=== PATIENT | male | born 1945 | race Caucasian/White ===

== ENCOUNTER 2018-09-29 14:52 | Emergency (ER) | payer OTHER ==
[~2018-09-29] VITALS: Ht 182.9 cm; Wt 68.0 kg
[~2018-09-29 14:52] MED LIST: ACET-1603; AGG25C PO; ALLO100T; AMIT150T; ATEN-60; CARBAMAZEPINE; CHOL1CAP50; DICL0.1S20 OP; FLUO1TAB3; PREDSUS OP; SIMV-13; TEMA30CA
[2018-09-29 16:02] VITALS: BP 185/83
[2018-09-29] MEDS ORDERED: MORPHINE SULFATE 10 MG/ML INJ 1ML SDV IM ONE (17:00)
[2018-09-29] MEDS ORDERED: PROMETHAZINE HCL 25 MG/ML 1ML IM ONE (17:00)
== END 2018-09-29 17:45 | disposition home or self-care (01) ==
LOC: ER 14:52
DX: M54.16 Radiculopathy, lumbar region (principal); G89.29 Other chronic pain; F17.210 Nicotine dependence, cigarettes, uncomplicated; E78.5 Hyperlipidemia, unspecified; I10 Essential (primary) hypertension; F41.9 Anxiety disorder, unspecified; F32.9 Major depressive disorder, single episode, unspecified; Z86.73 Personal history of transient ischemic attack (TIA), and cerebral infarction without residual deficits; Z79.899 Other long term (current) drug therapy
CPT/HCPCS: 72100; 96372; 99283; J2270; J2550

== ENCOUNTER 2021-05-27 17:51 | Inpatient (IN) | payer MEDICARE, OTHER ==
[~2021-05-27] VITALS: Ht 182.9 cm; Wt 67.4 kg
[~2021-05-27 17:51] MED LIST changes: -AMIT150T; +AMIT150T3; -FLUO1TAB3; +FLUO20TA34
[2021-05-27] MEDS ORDERED: TRAM50TA2 PO (18:31)
[2021-05-27] MEDS ORDERED: SODIUM CHLORIDE 0.9% 1,000 ML IV ONE ×2 (19:00→21:45)
[2021-05-27 19:51] LABS: Eosinophils # (auto) 0.1 10 ^3/uL (0-0.8); Monocytes # (auto) 0.4 10 ^3/uL (0-1.3); Neutrophils # (auto) 3.6 10 ^3/uL (1.6-8.6)
[2021-05-27 19:52] LABS: Basophils # (auto) 0.1 10 ^3/uL (0-0.2); Eosinophils % (auto) 2.3 % (0.0-7.0); Hematocrit 29.9 % (41.0-53.0); Hemoglobin 9.7 g/dL (13.5-17.5); Lymphocytes # (auto) 1.8 10 ^3/uL (0.4-5.4); Lymphocytes % (auto) 29.7 % (10.0-50.0); Mean Corpuscular Hemoglobin 26.4 pg (28.0-32.0); Mean Corpuscular Hgb Conc. 32.4 g/dL (32.0-36.0); Mean Corpuscular Volume 81.4 fL (80.0-100.0); Monocytes % (auto) 6.3 % (0.0-12.0); Neutrophils % (auto) 60.7 % (37.0-80.0); Red Blood Cells 3.67 10^6/uL (4.5-5.90); Red Cell Distribution Width 22.9 % (11.8-14.3)
[2021-05-27 20:06] LABS: Albumin 3.1 g/dL (3.4-5.0); Calcium 8.5 mg/dL (8.5-10.1); Potassium 4.4 mmol/L (3.5-5.1)
[2021-05-27 20:10] LABS: BUN/Creatinine Ratio 31.7; Bilirubin, Total 0.2 mg/dL (0.2-1.0); Total Protein 6.6 g/dL (6.4-8.2)
[2021-05-27] MEDS ORDERED: ONDANSETRON HCL 4 MG/2 ML VIAL IV PRN (22:30)
[2021-05-27] MEDS ORDERED: SODIUM CHLORIDE 0.9% 1,000 ML IV SCH (22:30)
[2021-05-28 01:09] VITALS: BP 133/51
[2021-05-28 05:00] VITALS: BP 137/68
[2021-05-28 06:12] LABS: Eosinophils # (auto) 0.1 10 ^3/uL (0-0.8); Red Blood Cells 3.39 10^6/uL (4.5-5.90); White Blood Cell 5.8 10^3/uL (4.4-10.8)
[2021-05-28 06:15] LABS: Basophils # (auto) 0.1 10 ^3/uL (0-0.2); Eosinophils % (auto) 2.2 % (0.0-7.0); Hematocrit 27.4 % (41.0-53.0); Lymphocytes # (auto) 1.9 10 ^3/uL (0.4-5.4); Lymphocytes % (auto) 33.1 % (10.0-50.0); Mean Corpuscular Hemoglobin 26.6 pg (28.0-32.0); Mean Corpuscular Hgb Conc. 32.9 g/dL (32.0-36.0); Monocytes # (auto) 0.4 10 ^3/uL (0-1.3); Monocytes % (auto) 7.2 % (0.0-12.0); Neutrophils # (auto) 3.3 10 ^3/uL (1.6-8.6); Neutrophils % (auto) 56.5 % (37.0-80.0); Nucleated Red Blood Cells % 0.3 %
[2021-05-28 06:28] LABS: Red Cell Distribution Width 23.2 % (11.8-14.3)
[2021-05-28 06:29] LABS: Albumin 2.8 g/dL (3.4-5.0); Calcium 7.9 mg/dL (8.5-10.1); Potassium 4.5 mmol/L (3.5-5.1)
[2021-05-28 06:32] LABS: BUN/Creatinine Ratio 29.8
[2021-05-28 06:34] LABS: Bilirubin, Total 0.2 mg/dL (0.2-1.0); Total Protein 5.9 g/dL (6.4-8.2)
[2021-05-28 09:00] VITALS: BP 131/53
[2021-05-28] MEDS: PANTOPRAZOLE 40 MG/10 ML VIAL INJ IV SCH (09:50)
[2021-05-28] MEDS ORDERED: D5W 5% 1,000 ML IV SCH (11:00)
[2021-05-28 22:00] VITALS: BP 145/47
[2021-05-29 05:00] VITALS: BP 137/47
[2021-05-29] MEDS: PANCREATIC ENZYMES 4200 UNIT CAP PO SCH ×3 (08:00→18:00)
[2021-05-29] MEDS ORDERED: LIDOCAINE VISCOUS 2% 15ML UD ONE (09:15)
[2021-05-29] MEDS ORDERED: SODIUM CHLORIDE LOCK 10 ML ONE (09:15)
[2021-05-29] MEDS ORDERED: diphenhdrAMINE HCL 50 MG/1 ML VL ONE (09:16)
[2021-05-29] MEDS ORDERED: MIDAZOLAM HCL 5 MG/ML-1ML VIAL ONE (09:16)
[2021-05-29] MEDS ORDERED: fentaNYL CITRATE 100 MCG/2 ML VL ONE (09:16)
[2021-05-29 09:26] VITALS: BP 128/77
[2021-05-29] MEDS: PANTOPRAZOLE 40 MG/10 ML VIAL INJ IV SCH (10:00)
[2021-05-29 10:48] LABS: INR 1.01 (0.9-1.15)
[2021-05-29 10:57] LABS: BUN/Creatinine Ratio 23.1; Calcium 8.6 mg/dL (8.5-10.1)
[2021-05-29] MEDS ORDERED: SODIUM CHLORIDE 0.9% 1,000 ML IV SCH (12:15)
[2021-05-29 16:34] VITALS: BP 129/63
[2021-05-29] MEDS ORDERED: PANCREATIC ENZYMES 4200 UNIT CAP PO SCH (18:00)
[2021-05-29] MEDS: SODIUM BICARBONATE 50ML VIAL 150 ML in D5W 5% 1,000 ML IV SCH (21:55)
[2021-05-29 22:00] VITALS: BP 151/66
[2021-05-30 05:00] VITALS: BP 129/43
[2021-05-30] MEDS: SODIUM BICARBONATE 50ML VIAL 150 ML in D5W 5% 1,000 ML IV SCH (06:00)
[2021-05-30 06:15] LABS: Potassium 4.8 mmol/L (3.5-5.1)
[2021-05-30 06:21] LABS: BUN/Creatinine Ratio 20.4; Calcium 8.6 mg/dL (8.5-10.1)
[2021-05-30] MEDS ORDERED: MIDAZOLAM HCL 5 MG/ML-1ML VIAL ONE (08:19)
[2021-05-30] MEDS ORDERED: LIDOCAINE VISCOUS 2% 15ML UD ONE (08:19)
[2021-05-30] MEDS ORDERED: fentaNYL CITRATE 100 MCG/2 ML VL ONE (08:20)
[2021-05-30] MEDS ORDERED: diphenhdrAMINE HCL 50 MG/1 ML VL ONE (08:20)
[2021-05-30] MEDS ORDERED: SODIUM CHLORIDE LOCK 10 ML ONE (08:20)
== END 2021-05-30 08:28 | disposition left against medical advice (07) | DRG 641 ==
LOC: EDBD 17:51 → ER 18:02 → OVERFLOW 22:24 → WEST WING 23:57
PROVIDERS: ADMIT Nurse Practitioner; ATTEND Internal Medicine
DX: E86.0 Dehydration (principal); N17.9 Acute kidney failure, unspecified; K86.1 Other chronic pancreatitis; D64.9 Anemia, unspecified; R13.10 Dysphagia, unspecified; I10 Essential (primary) hypertension; F41.9 Anxiety disorder, unspecified; F32.A Depression, unspecified; R19.7 Diarrhea, unspecified; Z53.29 Procedure and treatment not carried out because of patient's decision for other reasons; Z20.822 Contact with and (suspected) exposure to COVID-19; E78.5 Hyperlipidemia, unspecified; Z53.20 Procedure and treatment not carried out because of patient's decision for unspecified reasons; Z83.3 Family history of diabetes mellitus; Z85.51 Personal history of malignant neoplasm of bladder; Z86.73 Personal history of transient ischemic attack (TIA), and cerebral infarction without residual deficits; Z98.1 Arthrodesis status
CPT/HCPCS: 36415; 71045; 74176; 76775; 80048; 80053; 82270; 83605; 85025; 85610; 87040; 87426; 92610; 93005; 96360; 96361; C9113; G0378; J2250; J7042

== ENCOUNTER 2021-12-19 18:18 | Inpatient (IN) | payer OTHER, MEDICAID ==
[~2021-12-19] VITALS: Ht 195.6 cm; Wt 66.3 kg
[2021-12-19 19:49] LABS: Basophils # (auto) 0.1 10 ^3/uL (0-0.2); Basophils % (auto) 0.4 % (0.0-2.0); Eosinophils # (auto) 0 10 ^3/uL (0-0.8); Eosinophils % (auto) 0.1 % (0.0-7.0); Hematocrit 42.3 % (41.0-53.0); Hemoglobin 14.1 g/dL (13.5-17.5); Lymphocytes % (auto) 7.1 % (10.0-50.0); Mean Corpuscular Hemoglobin 28.5 pg (28.0-32.0); Mean Corpuscular Hgb Conc. 33.3 g/dL (32.0-36.0); Mean Corpuscular Volume 85.8 fL (80.0-100.0); Monocytes # (auto) 1.2 10 ^3/uL (0-1.3); Monocytes % (auto) 8.4 % (0.0-12.0); Neutrophils # (auto) 11.5 10 ^3/uL (1.6-8.6); Red Blood Cells 4.94 10^6/uL (4.5-5.90); White Blood Cell 13.7 10^3/uL (4.4-10.8)
[2021-12-19 20:13] LABS: Albumin 3.9 g/dL (3.4-5.0); Calcium 8.8 mg/dL (8.5-10.1); Potassium 3.8 mmol/L (3.5-5.1)
[2021-12-19 20:21] LABS: BUN/Creatinine Ratio 24.7; Bilirubin, Total 0.5 mg/dL (0.2-1.0)
[2021-12-19] MEDS ORDERED: SODIUM CHLORIDE 0.9% 1,000 ML IV ONE (20:30)
[2021-12-19] MEDS ORDERED: fentaNYL CITRATE 100 MCG/2 ML VL IV ONE (20:30)
[2021-12-19] MEDS ORDERED: ASPirin 325 MG TAB PO ONE (21:15)
[2021-12-20] MEDS ORDERED: MORPHINE SULFATE INJ 2 MG/ml SYRG IV PRN
[2021-12-20] MEDS ORDERED: NITROGLYCERIN 0.4 MG SL TAB SL PRN
[2021-12-20] MEDS ORDERED: IBUPROFEN 400 MG TAB PO PRN (00:15)
[2021-12-20] MEDS ORDERED: cefTRIAXone 1GM/50ML D5W 50 ML IV ONE (00:15)
[2021-12-20] MEDS: hydrALAZINE HCL 20 MG/ML VL IV PRN ×3 (01:43→15:19)
[2021-12-20] MEDS: SOD CHL 0.45% 1,000 ML IV SCH ×2 (02:59→15:06)
[2021-12-20] MEDS: MORPHINE SULFATE INJ 2 MG/ml SYRG IV PRN ×2 (03:07→14:36)
[2021-12-20] MEDS: ONDANSETRON HCL 4 MG/2 ML VIAL IV PRN ×2 (03:07→15:18)
[2021-12-20] MEDS ORDERED: amLODIPine BESYLATE 5 MG TAB PO ONE (04:30)
[2021-12-20 06:42] LABS: Urine Bacteria NONE SEEN /hpf (None Seen); Urine Blood TRACE /uL (Negative); Urine Specific Gravity 1.017 (1.001-1.035); Urine WBC 2 /hpf (0 - 3)
[2021-12-20 07:00] LABS: Basophils # (auto) 0.1 10 ^3/uL (0-0.2); Basophils % (auto) 0.6 % (0.0-2.0); Eosinophils # (auto) 0 10 ^3/uL (0-0.8); Hematocrit 41.4 % (41.0-53.0); Hemoglobin 13.5 g/dL (13.5-17.5); Lymphocytes # (auto) 0.4 10 ^3/uL (0.4-5.4); Lymphocytes % (auto) 2.8 % (10.0-50.0); Mean Corpuscular Hgb Conc. 32.7 g/dL (32.0-36.0); Mean Corpuscular Volume 85.8 fL (80.0-100.0); Monocytes # (auto) 1.1 10 ^3/uL (0-1.3); Monocytes % (auto) 8.6 % (0.0-12.0); Neutrophils # (auto) 11.5 10 ^3/uL (1.6-8.6); Red Blood Cells 4.82 10^6/uL (4.5-5.90); Red Cell Distribution Width 17.8 % (11.8-14.3); White Blood Cell 13.1 10^3/uL (4.4-10.8)
[2021-12-20 07:08] LABS: Potassium 4.7 mmol/L (3.5-5.1)
[2021-12-20 07:16] LABS: Albumin 3.4 g/dL (3.4-5.0); BUN/Creatinine Ratio 27.8; Bilirubin, Total 0.5 mg/dL (0.2-1.0); Calcium 8.1 mg/dL (8.5-10.1)
[2021-12-20] MEDS: FAMOTIDINE (10MG/ML) 2ML VL IV SCH ×2 (11:03→23:14)
[2021-12-20] MEDS: ASPirin 81 mg TAB PO SCH (11:04)
[2021-12-20] MEDS: amLODIPine BESYLATE 5 MG TAB PO SCH (11:05)
[2021-12-20 11:43] LABS: Alcohol, Urine < 3.0 mg/dL (0-10); Amphetamine Screen, Urine NEGATIVE (NEGATIVE); Barbiturate Scree,Urine NEGATIVE (NEGATIVE); Benzodiazephine Screen, Urine NEGATIVE (NEGATIVE); Cannabinoid Screen, Urine POSITIVE (NEGATIVE); Cocaine Screen, Urine NEGATIVE (NEGATIVE); Opiate Scree,Urine POSITIVE (NEGATIVE); Phencyclidine Screen, Urine NEGATIVE (NEGATIVE)
[2021-12-20] MEDS: ENOXAPARIN SOD 60 MG/0.6 ML SYRINGE SC SCH ×2 (11:53→23:14)
[2021-12-20] MEDS: METOPROLOL SUCCINATE XL 50 MG TAB PO SCH (12:01)
[2021-12-20] MEDS: HYDROmorphone HCL 2 MG/ML VL/or syr IV PRN (17:05)
[2021-12-20] MEDS: cefTRIAXone 1GM/50ML D5W 50 ML IV SCH (23:14)
[2021-12-21] VITALS (7 sets, daily range): BP systolic 93–164; BP diastolic 51–97
[2021-12-21] MEDS: HYDROmorphone HCL 2 MG/ML VL/or syr IV PRN ×4 (00:17→18:20)
[2021-12-21] MEDS: SOD CHL 0.45% 1,000 ML IV SCH (03:10)
[2021-12-21] MEDS: amLODIPine BESYLATE 5 MG TAB PO SCH (09:11)
[2021-12-21] MEDS: ASPirin 81 mg TAB PO SCH (09:11)
[2021-12-21] MEDS: FAMOTIDINE (10MG/ML) 2ML VL IV SCH (09:11)
[2021-12-21] MEDS: ENOXAPARIN SOD 60 MG/0.6 ML SYRINGE SC SCH (09:12)
[2021-12-21] MEDS: METOPROLOL SUCCINATE XL 50 MG TAB PO SCH (09:12)
[2021-12-21] MEDS: SODIUM BICARBONATE 50ML VIAL 50 ML in SOD CHL 0.45% 1,000 ML IV SCH ×2 (09:15→22:43)
[2021-12-21] MEDS: ONDANSETRON HCL 4 MG/2 ML VIAL IV PRN (10:17)
[2021-12-21 10:24] LABS: Basophils # (auto) 0 10 ^3/uL (0-0.2); Basophils % (auto) 0.4 % (0.0-2.0); Eosinophils # (auto) 0 10 ^3/uL (0-0.8); Eosinophils % (auto) 0.1 % (0.0-7.0); Lymphocytes # (auto) 0.3 10 ^3/uL (0.4-5.4); Lymphocytes % (auto) 2.8 % (10.0-50.0); Mean Corpuscular Hemoglobin 28.2 pg (28.0-32.0); Mean Corpuscular Hgb Conc. 32.4 g/dL (32.0-36.0); Mean Corpuscular Volume 87.1 fL (80.0-100.0); Monocytes # (auto) 0.7 10 ^3/uL (0-1.3); Neutrophils # (auto) 11.2 10 ^3/uL (1.6-8.6); Neutrophils % (auto) 90.7 % (37.0-80.0); Nucleated Red Blood Cells % 0.1 %; Red Blood Cells 4.24 10^6/uL (4.5-5.90); Red Cell Distribution Width 17.9 % (11.8-14.3); White Blood Cell 12.3 10^3/uL (4.4-10.8)
[2021-12-21 10:41] LABS: Albumin 3.2 g/dL (3.4-5.0); Calcium 8.3 mg/dL (8.5-10.1); Potassium 4.2 mmol/L (3.5-5.1)
[2021-12-21 10:45] LABS: BUN/Creatinine Ratio 26.2; Bilirubin, Total 1.1 mg/dL (0.2-1.0); Total Protein 5.8 g/dL (6.4-8.2)
[2021-12-21] MEDS: hydrALAZINE HCL 20 MG/ML VL IV PRN (12:51)
[2021-12-21] MEDS: metroNIDAZOLE 500MG/100ML 100 ML IV SCH (19:27)
[2021-12-21] MEDS: cefTRIAXone 1GM/50ML D5W 50 ML IV SCH (22:42)
[2021-12-22] VITALS (55 sets, daily range): BP systolic 72–135; BP diastolic 25–61
[2021-12-22] MEDS: metroNIDAZOLE 500MG/100ML 100 ML IV SCH ×4 (00:18→21:59)
[2021-12-22] MEDS ORDERED: PANTOPRAZOLE 40mg/50ML NS AE 50 ML IV SCH (06:15)
[2021-12-22] MEDS ORDERED: SODIUM CHLORIDE 0.9% 1,000 ML IV ONE (06:15)
[2021-12-22 07:15] LABS: Basophils # (auto) 0 10 ^3/uL (0-0.2); Basophils % (auto) 0.3 % (0.0-2.0); Eosinophils # (auto) 0 10 ^3/uL (0-0.8); Hematocrit 37.2 % (41.0-53.0); Lymphocytes # (auto) 0.2 10 ^3/uL (0.4-5.4); Lymphocytes % (auto) 5.5 % (10.0-50.0); Mean Corpuscular Hemoglobin 28.2 pg (28.0-32.0); Mean Corpuscular Hgb Conc. 32.3 g/dL (32.0-36.0); Mean Corpuscular Volume 87.2 fL (80.0-100.0); Monocytes # (auto) 0.3 10 ^3/uL (0-1.3); Monocytes % (auto) 7.7 % (0.0-12.0); Neutrophils # (auto) 3.7 10 ^3/uL (1.6-8.6); Neutrophils % (auto) 86.5 % (37.0-80.0); Nucleated Red Blood Cells % 0.1 %; Red Blood Cells 4.26 10^6/uL (4.5-5.90); Red Cell Distribution Width 17.5 % (11.8-14.3); White Blood Cell 4.3 10^3/uL (4.4-10.8)
[2021-12-22 09:20] LABS: Potassium 4.1 mmol/L (3.5-5.1)
[2021-12-22 09:21] LABS: Albumin 2.3 g/dL (3.4-5.0); BUN/Creatinine Ratio 34.4; Bilirubin, Total 0.7 mg/dL (0.2-1.0); Calcium 7.4 mg/dL (8.5-10.1)
[2021-12-22] MEDS: ASPirin 81 mg TAB PO SCH (10:00)
[2021-12-22] MEDS: METOPROLOL SUCCINATE XL 50 MG TAB PO SCH (10:00)
[2021-12-22] MEDS: amLODIPine BESYLATE 5 MG TAB PO SCH (10:00)
[2021-12-22] MEDS: ENOXAPARIN SOD 60 MG/0.6 ML SYRINGE SC SCH (11:59)
[2021-12-22] MEDS ORDERED: IPRATROPIUM BROM 0.5 MG/2.5ML INH SOL NEB PRN (18:00)
[2021-12-22] MEDS ORDERED: ALBUTEROL SULF 2.5 MG/0.5ML(0.5%) NEB SOLN NEB ONE (18:00)
[2021-12-22] MEDS: HYDROmorphone HCL 2 MG/ML VL/or syr IV PRN (19:53)
[2021-12-22] MEDS ORDERED: ALBUTEROL SULF 2.5 MG/0.5ML(0.5%) NEB SOLN NEB PRN (20:15)
[2021-12-22] MEDS: cefTRIAXone 1GM/50ML D5W 50 ML IV SCH (21:57)
[2021-12-23] VITALS (89 sets, daily range): BP systolic 84–139; BP diastolic 26–62
[2021-12-23] MEDS: SODIUM BICARBONATE 50ML VIAL 50 ML in SOD CHL 0.45% 1,000 ML IV SCH ×5 (00:10→21:09)
[2021-12-23] MEDS: HYDROmorphone HCL 2 MG/ML VL/or syr IV PRN ×4 (00:14→21:09)
[2021-12-23] MEDS ORDERED: diphenhdrAMINE HCL 50 MG/1 ML VL IV ONE (01:45)
[2021-12-23 05:05] LABS: Albumin 1.8 g/dL (3.4-5.0); Calcium 6.2 mg/dL (8.5-10.1); Potassium 3.8 mmol/L (3.5-5.1)
[2021-12-23 05:07] LABS: BUN/Creatinine Ratio 39.4; Bilirubin, Total 0.6 mg/dL (0.2-1.0); Total Protein 3.8 g/dL (6.4-8.2)
[2021-12-23 05:09] LABS: Basophils # (auto) 0 10 ^3/uL (0-0.2); Eosinophils # (auto) 0 10 ^3/uL (0-0.8); Hematocrit 31.1 % (41.0-53.0); Hemoglobin 10.5 g/dL (13.5-17.5); Lymphocytes # (auto) 0.1 10 ^3/uL (0.4-5.4); Lymphocytes % (auto) 2.1 % (10.0-50.0); Mean Corpuscular Hemoglobin 28.9 pg (28.0-32.0); Mean Corpuscular Hgb Conc. 33.7 g/dL (32.0-36.0); Monocytes # (auto) 0.3 10 ^3/uL (0-1.3); Monocytes % (auto) 5.4 % (0.0-12.0); Neutrophils # (auto) 5.3 10 ^3/uL (1.6-8.6); Neutrophils % (auto) 92.5 % (37.0-80.0); Nucleated Red Blood Cells % 0.1 %; Red Blood Cells 3.62 10^6/uL (4.5-5.90); White Blood Cell 5.7 10^3/uL (4.4-10.8)
[2021-12-23] MEDS ORDERED: ACETAMINOPHEN 325 MG TAB PO PRN (05:30)
[2021-12-23] MEDS ORDERED: HYDROcodone-ACET 5/325MG TAB PO PRN (05:30)
[2021-12-23] MEDS: metroNIDAZOLE 500MG/100ML 100 ML IV SCH ×3 (06:20→21:50)
[2021-12-23] MEDS: NOREPINEPHRINE 8 MG/250ML KIT 250 ML IV SCH ×2 (06:23→12:00)
[2021-12-23] MEDS: PIPERACILLIN-TAZOB 2.25GM 50 ML IV SCH ×3 (07:47→21:50)
[2021-12-23] MEDS ORDERED: FAMOTIDINE (10MG/ML) 2ML VL IV SCH (10:00)
[2021-12-23] MEDS: amLODIPine BESYLATE 5 MG TAB PO SCH (10:00)
[2021-12-23] MEDS: ENOXAPARIN SOD 60 MG/0.6 ML SYRINGE SC SCH (10:00)
[2021-12-23] MEDS: ASPirin 81 mg TAB PO SCH (10:29)
[2021-12-23 10:43] LABS: INR 1.08 (0.9-1.15); Partial Thromboplastin Time 44.3 sec (24.6-33.4)
[2021-12-23] MEDS ORDERED: SODIUM BICARBONATE 8.4 % INJ 50ML VIAL IV ONE (15:00)
[2021-12-23] MEDS: ATORVASTATIN 20 MG TAB PO SCH (22:00)
[2021-12-24] VITALS (81 sets, daily range): BP systolic 68–132; BP diastolic 28–61
[2021-12-24 04:48] LABS: Hematocrit 34.4 % (41.0-53.0); Hemoglobin 11.2 g/dL (13.5-17.5); Mean Corpuscular Hemoglobin 28.8 pg (28.0-32.0); Mean Corpuscular Hgb Conc. 32.7 g/dL (32.0-36.0); Mean Corpuscular Volume 88.1 fL (80.0-100.0); Red Cell Distribution Width 18.4 % (11.8-14.3); White Blood Cell 9.4 10^3/uL (4.4-10.8)
[2021-12-24 04:53] LABS: Basophils % (manual) 0 (0.0-2.0); Blast Cells 0; Eosinophils % (manual) 0 (0-7); Promyelocytes % 0; Reactive Lymphocytes 0
[2021-12-24] MEDS: HYDROmorphone HCL 2 MG/ML VL/or syr IV PRN ×6 (04:53→22:08)
[2021-12-24 05:02] LABS: Albumin 1.9 g/dL (3.4-5.0); BUN/Creatinine Ratio 35.3
[2021-12-24 05:08] LABS: Bilirubin, Total 0.6 mg/dL (0.2-1.0); Total Protein 4.8 g/dL (6.4-8.2)
[2021-12-24] MEDS ORDERED: ENAL2.5T7 PO (05:26)
[2021-12-24] MEDS ORDERED: PREG50CA PO (05:26)
[2021-12-24] MEDS ORDERED: ASPI325T4 PO (05:26)
[2021-12-24] MEDS ORDERED: TRAZ-181 PO (05:26)
[2021-12-24] MEDS ORDERED: HYDR25TA4 PO (05:26)
[2021-12-24] MEDS ORDERED: HYDR-4798 PO (05:26)
[2021-12-24] MEDS ORDERED: ATEN-60 PO (05:26)
[2021-12-24] MEDS: metroNIDAZOLE 500MG/100ML 100 ML IV SCH (05:51)
[2021-12-24] MEDS: PIPERACILLIN-TAZOB 2.25GM 50 ML IV SCH ×3 (05:52→22:00)
[2021-12-24 07:39] LABS: Band Neutrophils % (manual) 25; Lymphocytes % (manual) 6 (10.0-50.0); Metamyelocytes % 3; Monocytes % (manual) 8 (0-12); Myelocytes % 2
[2021-12-24] MEDS: amLODIPine BESYLATE 5 MG TAB PO SCH (08:36)
[2021-12-24] MEDS: SODIUM BICARBONATE 50ML VIAL 50 ML in SOD CHL 0.45% 1,000 ML IV SCH ×2 (08:37→21:15)
[2021-12-24] MEDS: ENOXAPARIN SOD 60 MG/0.6 ML SYRINGE SC SCH (08:56)
[2021-12-24] MEDS: ASPirin 81 mg TAB PO SCH (08:56)
[2021-12-24] MEDS ORDERED: FUROSEMIDE 100 MG/10ML VIAL IV ONE (10:15)
[2021-12-24] MEDS: LORazepam 2MG/ML-1ML VIAL IV PRN ×2 (18:22→22:07)
[2021-12-24] MEDS: ATORVASTATIN 20 MG TAB PO SCH (22:00)
[2021-12-25] VITALS: BP 87/34
[2021-12-25 01:00] VITALS: BP 85/34
== END 2021-12-25 01:52 | DRG 871 ==
LOC: EDBD 18:18 → ER 18:22 → OVERFLOW 23:59 → EAST 12-20 21:05 → TELE-EAST 12-20 22:25 → DOU IN ICU 12-22 06:00 → ICU CENTRL 12-23 04:40
PROVIDERS: ADMIT Nurse Practitioner Family; ATTEND Internal Medicine
DX: A41.9 Sepsis, unspecified organism (principal); E43 Unspecified severe protein-calorie malnutrition; I21.4 Non-ST elevation (NSTEMI) myocardial infarction; J96.01 Acute respiratory failure with hypoxia; K85.90 Acute pancreatitis without necrosis or infection, unspecified; N17.0 Acute kidney failure with tubular necrosis; G93.41 Metabolic encephalopathy; R65.21 Severe sepsis with septic shock; J98.11 Atelectasis; K86.1 Other chronic pancreatitis; K81.0 Acute cholecystitis; Z68.1 Body mass index [BMI] 19.9 or less, adult; Z86.73 Personal history of transient ischemic attack (TIA), and cerebral infarction without residual deficits; Z66 Do not resuscitate; Z20.822 Contact with and (suspected) exposure to COVID-19; I71.4 Abdominal aortic aneurysm, without rupture; N28.1 Cyst of kidney, acquired; I16.0 Hypertensive urgency; N18.9 Chronic kidney disease, unspecified; I12.9 Hypertensive chronic kidney disease with stage 1 through stage 4 chronic kidney disease, or unspecified chronic kidney disease; D64.9 Anemia, unspecified; E78.00 Pure hypercholesterolemia, unspecified; E86.0 Dehydration; F32.A Depression, unspecified; I35.2 Nonrheumatic aortic (valve) stenosis with insufficiency; J43.9 Emphysema, unspecified; K59.00 Constipation, unspecified; M10.9 Gout, unspecified; R57.0 Cardiogenic shock; R73.03 Prediabetes; Z83.3 Family history of diabetes mellitus; Z51.5 Encounter for palliative care; Z79.82 Long term (current) use of aspirin; Z79.899 Other long term (current) drug therapy
CPT/HCPCS: 36415; 36600; 71045; 74176; 76705; 76775; 80053; 80307; 81001; 82140; 82270; 82306; 82570; 82607; 82746; 82805; 82962; 83036; 83605; 83690; 83735; 83970; 84100; 84156; 84300; 84443; 84484; 85007; 85025; 85027; 85610; 85730; 86850; 86900; 86901; 86920; 87040; 87081; 87086; 93005; 93306; 94640; 96365; 96375; 99291; G0378; J0696; J2405; J2543; J3490